=== PATIENT | female | born 1985 | race Caucasian/White ===

== ENCOUNTER 2020-03-23 09:48 | Emergency (ER) | payer OTHER ==
[~2020-03-23] VITALS: Ht 162.6 cm; Wt 71.0 kg
[2020-03-23 09:58] VITALS: BP 120/65
[2020-03-23] MEDS ORDERED: NAPR-514 PO (10:12)
[2020-03-23] MEDS ORDERED: METH-38 PO (10:12)
[2020-03-23] MEDS ORDERED: HYDR-3164 PO (10:12)
--- NOTE | 2020-03-23 10:13 | PHYS DOC ---
Past Medical History Past Medical History: Hypothyroid Additional Past Medical Histor: SEASONAL ALLERGIES Past Surgical History: Other Additional Past Surgical Histo: BLADDER SLING Smoking Status: Never Smoker Alcohol Use: Occasionally General Adult EDM: Chief Complaint: BACK PAIN OR INJURY HPI: HPI: Patient is a 34-year-old otherwise healthy female who presents with neck pain. She states she woke up with pretty severe pain on the left side of her neck. She states she thought she slept on it wrong. She did not have any trauma that she knows of. She states over the last several hours she is developed some pain down into her shoulder and upper arm. The pain is much worse with any movement of the neck. She denies any bowel or bladder dysfunction. [] Review of Systems: Review of Systems: Constitutional: Denies fever or chills. [] Eyes: Denies change in visual acuity. [] HENT: Denies nasal congestion or sore throat. [] Respiratory: Denies cough or shortness of breath. [] Cardiovascular: Denies chest pain or edema. [] GI: Denies abdominal pain, nausea, vomiting, bloody stools or diarrhea. [] : Denies dysuria. [] Musculoskeletal: Per HPI [] Integument: Denies rash. [] Neurologic: Denies headache, focal weakness or sensory changes. [] Endocrine: Denies polyuria or polydipsia. [] Lymphatic: Denies swollen glands. [] Psychiatric: Denies depression or anxiety. [] Heart Score: Risk Factors: Risk Factors: DM, Current or recent (<one month) smoker, HTN, HLP, family history of CAD, obesity. Risk Scores: Score 0 - 3: 2.5% MACE over next 6 weeks - Discharge Home Score 4 - 6: 20.3% MACE over next 6 weeks - Admit for Clinical Observation Score 7 - 10: 72.7% MACE over next 6 weeks - Early Invasive Strategies Current Medications: Current Medications Medications (Trade) Dose Ordered Sig/Tonja Start Time Stop Time Status Last Admin Dose Admin Ketorolac Tromethamine (Toradol Im) 60 mg 1X ONCE 03/23/20 10:15 03/23/20 10:16 UNV Orphenadrine Citrate (Norflex) 60 mg 1X ONCE 03/23/20 10:15 03/23/20 10:16 UNV Physical Exam: PE: Constitutional: Well developed, well nourished, mild to moderate distress, non- toxic appearance. [] HENT: Normocephalic, atraumatic, bilateral external ears normal, oropharynx moist, no oral exudates, nose normal. [] Eyes: PERRLA, EOMI, conjunctiva normal, no discharge. [] Neck: Normal range of motion, no tenderness, supple, no stridor. [] Cardiovascular:Heart rate regular rhythm, no murmur [] Lungs & Thorax: Bilateral breath sounds clear to auscultation [] Abdomen: Bowel sounds normal, soft, no tenderness, no masses, no pulsatile masses. [] Skin: Warm, dry, no erythema, no rash. [] Back: Left-sided cervical paraspinal muscle spasm no midline vertebral tenderness. [] Extremities: No tenderness, no cyanosis, no clubbing, ROM intact, no edema. [] Neurologic: Alert and oriented X 3, normal motor function, normal sensory f unction, no focal deficits noted. [] Psychologic: Anxious [] Current Patient Data: Vital Signs: Vital Signs Date Time Temp Pulse Resp B/P (MAP) Pulse Ox O2 Delivery O2 Flow Rate FiO2 03/23/20 09:58 97.8 77 16 120/65 (83) 97 Room Air 97.8 EKG: EKG: [] Radiology/Procedures: Radiology/Procedures: [] Course & Med Decision Making: Course & Med Decision Making Pertinent Labs and Imaging studies reviewed. (See chart for details) [] Dragon Disclaimer: Dragon Disclaimer: This electronic medical record was generated, in whole or in part, using a voice recognition dictation system. Departure Departure Impression: Primary Impression: Cervical muscle strain Qualified Codes: S16.1XXA - Strain of muscle, fascia and tendon at neck level, initial encounter Disposition: HOME, SELF-CARE Condition: STABLE Referrals: YANELY CHAUHAN MD (PCP) Patient Instructions: Cervical Radiculopathy, Cervical Sprain Additional Instructions: Return to the emergency department with any new or concerning symptoms Scripts Methocarbamol (ROBAXIN-750) 750 Mg Tablet 1 TAB PO TID, #90 TAB Prov: PORTIA CHAVEZ DO 03/23/20 Hydrocodone/Apap 5-325 (NORCO 5-325 TABLET) 1 Each Tablet 1 TAB PO PRN Q6HRS PRN for PAIN, #10 TAB 0 Refills Prov: PORTIA CHAVEZ DO 03/23/20 Naproxen (NAPROXEN) 500 Mg Tablet 1 TAB PO BID PRN for PAIN for 30 Days, #60 TAB 1 Refill Prov: PORTIA CHAVEZ DO 03/23/20 Justicifation of Admission Dx: Justifications for Admission: Justification of Admission Dx: No PORTIA CHAVEZ DO Mar 23, 2020 10:13
[2020-03-23] MEDS ORDERED: ORPHENADRINE CITRATE 60 MG/2 ML VIAL. IM ONE (10:15)
[2020-03-23] MEDS ORDERED: KETOROLAC 60 MG/2 ML VIAL. IM ONE (10:15)
== END 2020-03-23 10:26 | disposition home or self-care (01) ==
LOC: ER 09:48
DX: S16.1XXA Strain of muscle, fascia and tendon at neck level, initial encounter (principal); E03.9 Hypothyroidism, unspecified; Z98.890 Other specified postprocedural states; W01.0XXA Fall on same level from slipping, tripping and stumbling without subsequent striking against object, initial encounter; Y93.89 Activity, other specified; Y92.89 Other specified places as the place of occurrence of the external cause; Y99.8 Other external cause status
CPT/HCPCS: 96372; 99284; J1885; J2360